=== PATIENT | female | born 1965 | race African-American/Black ===

== ENCOUNTER 2024-09-01 07:49 | Emergency (ER) | payer BC ==
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
[2024-09-01] MEDS ORDERED: MORPHINE 4 MG/ML SYR ONE (08:04)
[2024-09-01] MEDS ORDERED: TDAP (DIPHTH,PERTUSS(ACELL),TET VAC) 0.5 ML VIAL IMVAC ONE (08:05)
[2024-09-01 09:00] VITALS: TEMP 98.8
[2024-09-01] MEDS ORDERED: BACITRACIN OINTMENT 14 GM TUBE TOP ONE (09:00)
[2024-09-01 09:02] VITALS: BP 138/74; O2SAT 99
== END 2024-09-01 08:56 | disposition home or self-care (01) ==
LOC: ER 07:49
DX: T24.211A Burn of second degree of right thigh, initial encounter (principal); T31.0 Burns involving less than 10% of body surface
CPT/HCPCS: 96372; 99284